=== PATIENT | female | born 1950 | race Hispanic/Latino ===

== ENCOUNTER 2021-11-11 14:54 | Inpatient (IN) | payer MEDICARE ==
[~2021-11-11] VITALS: Ht 149.9 cm; Wt 68.0 kg
[2021-11-11 16:04] LABS: BASOPHILS % 0.2 % (0.0-1.0); EOSINOPHILS % 0.1 % (0.0-6.0); HEMATOCRIT 45.4 % (34.2-44.1); LYMPHOCYTES # (AUTO) 0.9 (1.0-3.2); LYMPHOCYTES % 5.3 % (18.0-39.1); MEAN CORPUSCULAR HEMOGLOBIN 31.3 pg (28-32); MEAN CORPUSCULAR VOLUME 94.6 fL (81-99); MONOCYTES # (AUTO) 0.9 (0.2-0.8); MONOCYTES % 5.1 % (4.4-11.3); NEUTROPHILS # (AUTO) 15.7 (2.1-6.9); PLATELET COUNT 207 x10e3/uL (140-360); RED CELL DISTRIBUTION WIDTH 13.9 % (11.7-14.4)
[2021-11-11 16:20] LABS: ALBUMIN 4.1 g/dL (3.5-5.0); ALBUMIN/GLOBULIN RATIO 1.2 (0.8-2.0); ANION GAP 19.5 mmol/L (8-16); CALCIUM 9.7 mg/dL (8.4-10.2); CREATININE, SERUM 1.6 mg/dL (0.57-1.11); POTASSIUM 3.5 mmol/L (3.5-5.1)
[2021-11-11 16:39] LABS: CLARITY,URINE SL CLOUDY (CLEAR); COLOR,URINE YELLOW (YELLOW)
[2021-11-11 16:40] LABS: KETONES,URINE 1+ (NEGATIVE); LEUKOCYTE ESTERASE ,URINE NEGATIVE (NEGATIVE); NITRITE,URINE NEGATIVE (NEGATIVE); PROTEIN,URINE DIPSTICK 1+ (NEGATIVE); URINE UROBILINOGEN 1 mg/dL (0.2 - 1)
[2021-11-11 16:42] LABS: AMORPHOUS SEDIMENT,URINE MODERATE (FEW); BACTERIA,URINE MANY /HPF; CALCIUM OXALATE CRYSTALS,UR MODERATE (FEW); EPITHELIAL CELLS,URINE FEW /LPF; RBC,URINE 0-5 /HPF (0-5); WBC,URINE (MAN) 0-5 /HPF (0-5)
[2021-11-11] MEDS ORDERED: SODIUM CHLORIDE 0.9% 1000ML 1,000 ML IV STA (17:43)
[2021-11-11] MEDS ORDERED: SODIUM CHLORIDE 0.9% 1000ML 1,000 ML ONE (17:45)
[2021-11-11] MEDS ORDERED: ONDANSETRON HCL INJ 2MG/ML 2ML 2 MG/ML VIAL IV PRN (18:30)
[2021-11-11] MEDS ORDERED: Morphine 2mg Syringe 2 MG/ML SYR IV PRN (18:30)
[2021-11-11] MEDS: SODIUM CHLORIDE 0.9% 1000ML 1,000 ML IV SCH (19:30)
[2021-11-11 20:44] VITALS: BP 114/55
[2021-11-11] MEDS ORDERED: QUINAPRIL HCL20 MG PO (20:58)
[2021-11-11] MEDS ORDERED: NIFEDIPINE ER30 M1 PO (21:04)
[2021-11-11] MEDS ORDERED: HUMULIN R100 UNIT/2 INJ (21:04)
[2021-11-11] MEDS ORDERED: METOPROLOL SUCC50 MG PO (21:04)
[2021-11-11] MEDS ORDERED: FUROSEMIDE40 MG PO (21:04)
[2021-11-11] MEDS ORDERED: ATORVASTATIN CA40 MG PO (21:04)
[2021-11-11] MEDS ORDERED: MECLIZINE HCL12.5 MG PO (21:04)
[2021-11-11 21:08] VITALS: BP 114/55
[2021-11-12] VITALS (9 sets, daily range): BP systolic 128–170; BP diastolic 54–75
[2021-11-12] MEDS ORDERED: DULAGLUTIDE IM (01:14)
[2021-11-12 04:56] LABS: BASOPHILS % 0.4 % (0.0-1.0); EOSINOPHILS # (AUTO) 0.2 (0.0-0.4); EOSINOPHILS % 1.6 % (0.0-6.0); HEMOGLOBIN 13.1 g/dL (12.0-16.0); LYMPHOCYTES # (AUTO) 1.5 (1.0-3.2); LYMPHOCYTES % 14.3 % (18.0-39.1); MEAN CORPUSCULAR HEMOGLOBIN 30.9 pg (28-32); MEAN CORPUSCULAR HGB CONC 32.8 g/dL (31-35); MEAN CORPUSCULAR VOLUME 94.3 fL (81-99); MONOCYTES # (AUTO) 0.8 (0.2-0.8); MONOCYTES % 8.1 % (4.4-11.3); NEUTROPHILS # (AUTO) 7.7 (2.1-6.9); NEUTROPHILS % 75.3 % (38.7-80.0); PLATELET COUNT 166 x10e3/uL (140-360); RED BLOOD COUNT 4.24 x10e6/uL (3.6-5.1)
[2021-11-12 05:15] LABS: ANION GAP 13.2 mmol/L (8-16); CALCIUM 8.4 mg/dL (8.4-10.2); CREATININE, SERUM 0.92 mg/dL (0.57-1.11); POTASSIUM 3.2 mmol/L (3.5-5.1)
[2021-11-12] MEDS: SODIUM CHLORIDE 0.9% 1000ML 1,000 ML IV SCH ×3 (05:26→16:35)
[2021-11-13] VITALS (7 sets, daily range): BP systolic 138–169; BP diastolic 64–82
[2021-11-13] MEDS: SODIUM CHLORIDE 0.9% 1000ML 1,000 ML IV SCH ×3 (00:30→11:57)
[2021-11-13 09:28] LABS: ANION GAP 12.8 mmol/L (8-16); CALCIUM 8.3 mg/dL (8.4-10.2); CREATININE, SERUM 0.68 mg/dL (0.57-1.11)
[2021-11-13 09:36] LABS: POTASSIUM 2.8 mmol/L (3.5-5.1)
[2021-11-13] MEDS ORDERED: POTASSIUM CHLORIDE 20 MEQ TAB CR PO ONE ×4 (10:15→15:45)
[2021-11-13] MEDS ORDERED: POTASSIUM CHLORIDE 20MEQ/100ML 100 ML IV ONE (10:15)
[2021-11-14 00:20] VITALS: BP 164/74
[2021-11-14] MEDS ORDERED: QUINAPRIL HCL 20 MG TAB PO SCH ×2 (00:45→09:00)
[2021-11-14] MEDS: SODIUM CHLORIDE 0.9% 1000ML 1,000 ML IV SCH ×2 (02:30→09:31)
[2021-11-14 05:52] VITALS: BP 185/74
[2021-11-14 07:42] LABS: BASOPHILS # (AUTO) 0.1 (0.0-0.1); BASOPHILS % 0.6 % (0.0-1.0); EOSINOPHILS # (AUTO) 0.2 (0.0-0.4); EOSINOPHILS % 2.5 % (0.0-6.0); HEMATOCRIT 39.3 % (34.2-44.1); HEMOGLOBIN 13.4 g/dL (12.0-16.0); LYMPHOCYTES # (AUTO) 2.1 (1.0-3.2); LYMPHOCYTES % 25.2 % (18.0-39.1); MEAN CORPUSCULAR HGB CONC 34.1 g/dL (31-35); MONOCYTES # (AUTO) 0.7 (0.2-0.8); MONOCYTES % 8.7 % (4.4-11.3); NEUTROPHILS # (AUTO) 5.3 (2.1-6.9); NEUTROPHILS % 62.8 % (38.7-80.0); PLATELET COUNT 166 x10e3/uL (140-360); RED BLOOD COUNT 4.32 x10e6/uL (3.6-5.1); RED CELL DISTRIBUTION WIDTH 14.1 % (11.7-14.4)
[2021-11-14 08:03] LABS: ANION GAP 14.1 mmol/L (8-16); BLOOD UREA NITROGEN < 5 mg/dL (7-26); BUN/CREATININE RATIO 7 (6-25); CARBON DIOXIDE 23 mmol/L (22-29); CHLORIDE 110 mmol/L (98-107); CREATININE, SERUM 0.71 mg/dL (0.57-1.11); GLUCOSE 88 mg/dL (74-118); POTASSIUM 4.1 mmol/L (3.5-5.1); SODIUM 143 mmol/L (136-145)
[2021-11-14 08:41] VITALS: BP 159/80
[2021-11-14] MEDS ORDERED: METOPROLOL SUCCINATE 50 MG TAB XL PO SCH (09:00)
[2021-11-14] MEDS ORDERED: NIFEDIPINE CR 30 MG TAB PO SCH (09:00)
[2021-11-14 11:23] VITALS: BP 159/80
[2021-11-14 12:26] VITALS: BP 168/82
[2021-11-14] MEDS ORDERED: AUGMENTIN 500-1 EACH PO (14:41)
[2021-11-14] MEDS ORDERED: FLAGYL375 MG PO (14:41)
[2021-11-14 17:31] VITALS: BP 155/76
== END 2021-11-14 18:18 | disposition home or self-care (01) | DRG 392 ==
LOC: ER 15:15 → ERHOLD 19:00 → MED/SURG 20:35
DX: K57.32 Diverticulitis of large intestine without perforation or abscess without bleeding (principal); E11.9 Type 2 diabetes mellitus without complications; I10 Essential (primary) hypertension; E78.5 Hyperlipidemia, unspecified; E87.6 Hypokalemia; Z20.822 Contact with and (suspected) exposure to COVID-19
CPT/HCPCS: 0223U; 36415; 74176; 80048; 80053; 81001; 82270; 82948; 83605; 85014; 85025; 87040; 93005; 96360; 99251; 99284; J2543; J3480; J7030

== ENCOUNTER → 2022-01-08 | Day surgery (SDC) | payer MEDICARE ==
[2022-01-06 10:21] LABS: BASOPHILS # (AUTO) 0.1 (0.0-0.1); BASOPHILS % 0.9 % (0.0-1.0); EOSINOPHILS # (AUTO) 0.1 (0.0-0.4); EOSINOPHILS % 1.9 % (0.0-6.0); HEMATOCRIT 42.2 % (34.2-44.1); HEMOGLOBIN 14.5 g/dL (12.0-16.0); LYMPHOCYTES # (AUTO) 2.3 (1.0-3.2); MEAN CORPUSCULAR HEMOGLOBIN 31.9 pg (28-32); MEAN CORPUSCULAR HGB CONC 34.4 g/dL (31-35); MEAN CORPUSCULAR VOLUME 92.7 fL (81-99); MONOCYTES # (AUTO) 0.6 (0.2-0.8); MONOCYTES % 9.3 % (4.4-11.3); NEUTROPHILS # (AUTO) 3.4 (2.1-6.9); PLATELET COUNT 210 x10e3/uL (140-360); RED BLOOD COUNT 4.55 x10e6/uL (3.6-5.1)
[~2022-01-08] MED LIST: ATORVASTATIN CA40 MG PO; AUGMENTIN 500-1 EACH PO; DULAGLUTIDE IM; FLAGYL375 MG PO; FUROSEMIDE40 MG PO; HUMALOG KW200 UNIT/1; HUMALOG MI100 UNIT/2 SQ; HUMULIN R100 UNIT/2 INJ; LIDOCAINE HCL 2% LOCAL INJ 5 ML SDV VIAL INJ ONE; MECLIZINE HCL12.5 MG PO; METOPROLOL SUCC50 MG PO; NIFEDIPINE ER30 M1 PO; PROPOFOL IV EMULSION 10 MG/ML 20 ML VIAL ONE; PROPOFOL IV EMULSION 50 ML IV ONE; QUINAPRIL HCL20 MG PO; TOUJEO MAX300 UNIT/1
[2022-01-08 09:25] VITALS: BP 149/83
== END | disposition home or self-care (01) ==
LOC: OR 07:16
PROVIDERS: ATTEND Internal Medicine Gastroenterology
DX: K59.09 Other constipation (principal); D12.3 Benign neoplasm of transverse colon; K57.30 Diverticulosis of large intestine without perforation or abscess without bleeding; K64.8 Other hemorrhoids; I10 Essential (primary) hypertension; E11.9 Type 2 diabetes mellitus without complications; E78.00 Pure hypercholesterolemia, unspecified; M21.379 Foot drop, unspecified foot; G62.9 Polyneuropathy, unspecified; E78.6 Lipoprotein deficiency; Z01.812 Encounter for preprocedural laboratory examination; Z79.4 Long term (current) use of insulin; Z79.899 Other long term (current) drug therapy; Z68.29 Body mass index [BMI] 29.0-29.9, adult; Z86.16 Personal history of COVID-19
CPT/HCPCS: 36415 ×2; 45385; 82948; 85025; J2001; J2704 ×2; 45378